=== PATIENT | female | born 1990 | race African-American/Black ===

== ENCOUNTER 2019-04-22 21:19 | Emergency (ER) | payer OTHER ==
[~2019-04-22] VITALS: Ht 170.2 cm; Wt 74.5 kg
[2019-04-22 21:20] VITALS: BP 128/65
[2019-04-22] MEDS ORDERED: IBUPROFEN 600 MG TAB PO ONE (22:00)
[2019-04-22] MEDS ORDERED: CARISOPRODOL 350 MG TAB PO ONE (22:00)
[2019-04-22] MEDS ORDERED: IBUP-1022 PO (22:01)
[2019-04-22] MEDS ORDERED: CYCL10TA PO (22:01)
== END 2019-04-22 22:15 | disposition home or self-care (01) ==
LOC: M ED 21:19
DX: M54.5 Low back pain (principal)